=== PATIENT | female | born 1995 | race Caucasian/White ===

== ENCOUNTER 2024-09-04 05:13 | Emergency (ER) | payer OTHER ==
[2024-09-04] MEDS: Ketorolac 15 MG/ML SDV IVPUSH ONE (05:53)
[2024-09-04] MEDS: Ondansetron 4 MG/2 ML SDV IVPUSH ONE (05:54)
[2024-09-04] MEDS: Sodium Chloride 0.9% 1,000 ML IV ONE ×2 (05:55→07:34)
[2024-09-04] MEDS: Morphine 4 MG/ML Syringe IVPUSH ONE (05:55)
[2024-09-04 05:57] LABS: BASOPHILS PERCENT AUTO 0.3 % (0.1-1.3); EOSINOPHILS ABSOLUTE AUTO 0.06 K/uL (0.00-0.40); EOSINOPHILS PERCENT AUTO 0.8 % (0.0-5.4); HEMATOCRIT 38.2 % (34.3-46.0); HEMOGLOBIN 13.5 g/dL (11.2-15.5); IMMATURE GRAN ABSOLUTE AUTO 0.03 K/uL (0.00-0.23); IMMATURE GRAN PERCENT AUTO 0.4 % (0.0-0.7); LYMPHOCYTES ABSOLUTE AUTO 2.75 K/uL (0.8-3.3); LYMPHOCYTES PERCENT AUTO 38.6 % (11.4-47.7); MEAN CORPUSCULAR HEMOGLOBIN 29.2 pg (31.6-35.5); MEAN CORPUSCULAR HGB CONC 35.3 g/dL (31.6-35.5); MEAN CORPUSCULAR VOLUME 82.5 fL (81.4-99.0); MONOCYTES ABSOLUTE AUTO 0.51 K/uL (0.20-0.90); MONOCYTES PERCENT AUTO 7.2 % (3.3-12.6); NEUTROPHILS ABSOLUTE AUTO 3.76 K/uL (1.0-7.6); NEUTROPHILS PERCENT AUTO 52.7 % (40.0-78.1); PLATELET COUNT,PLT 389 K/uL (130-375); RED BLOOD CELL COUNT 4.63 M/uL (3.77-5.24); WHITE BLOOD CELL COUNT,WBC 7.1 K/uL (3.2-11.0)
[2024-09-04 05:57] LABS: APPEARANCE,URINE SLIGHTLY CLOUDY (CLEAR); BILIRUBIN,URINE MODERATE (NEGATIVE); COLOR,URINE YELLOW (YELLOW); GLUCOSE,URINE NEGATIVE (NEGATIVE); KETONES,URINE 40 mg/dL (NEGATIVE); LEUKOCYTE ESTERASE,URINE NEGATIVE (NEGATIVE); NITRITE,URINE NEGATIVE (NEGATIVE); OCCULT BLOOD,URINE NEGATIVE (NEGATIVE); PROTEIN,URINE 30 mg/dL (NEGATIVE); UROBILINOGEN,URINE 0.2 EU/dL (0.2-1.0)
[2024-09-04 06:01] LABS: BASOPHILS ABSOLUTE AUTO 0.02 K/uL (0.00-0.10)
[2024-09-04 06:02] LABS: AMORPHOUS SEDIMENT,URINE NOT SEEN; BACTERIA,URINE FEW; EPITHELIAL CELLS,URINE FEW; MUCUS,URINE MODERATE; RBC,URINE 0-5 (0-5); WBC,URINE 0-5 (0-5)
[2024-09-04 06:13] LABS: A/G RATIO 1.1 (1.2-2.2); ALANINE AMINOTRANSFERASE,ALT 23 U/L (12-78); ALBUMIN 4.1 g/dL (3.4-5.0); ALKALINE PHOSPHATASE 67 U/L (46-116); ASPARTATE AMNIOTRANSFERASE,AST 14 U/L (15-37); BILIRUBIN TOTAL 0.4 mg/dL (0.2-1.0); BLOOD UREA NITROGEN,BUN 13 mg/dL (7-18); CALCIUM 9.3 mg/dL (8.5-10.1); CARBON DIOXIDE,CO2 20 mmol/L (21-32); CHLORIDE,CL 102 mmol/L (100-108); CREATININE 0.9 mg/dL (0.6-1.0); EST CRCL DRUG DOSING (CG) 99.74 mL/min; ESTIMATED GFR 89 mL/min (>60); GLUCOSE RANDOM 120 mg/dL (74-106); POTASSIUM,K 3.5 mmol/L (3.6-5.2); PROTEIN TOTAL,TP 7.9 g/dL (6.4-8.2); SODIUM,NA 139 mmol/L (140-148)
[2024-09-04 06:18] LABS: ANION GAP 20.5 mmol/L (5.0-14.0)
[2024-09-04] MEDS ORDERED: Naloxone 0.4 MG/ML SDV IVPUSH PRN (07:23)
[2024-09-04] MEDS: Morphine 10 MG/ML Syringe IVPUSH ONE (07:41)
== END 2024-09-04 09:39 | disposition home or self-care (01) ==
LOC: JP.ED 05:13
DX: N20.0 Calculus of kidney (principal)
CPT/HCPCS: 36415; 74176; 76830; 76856; 80053; 81001; 84703; 85025; 93976; 96361; 96374; 96375; 96376; 99284; J1885; J2270; J2405; J7030